=== PATIENT | male | born 1965 | race Caucasian/White ===

== ENCOUNTER 2021-03-23 21:00 | Observation (INO) | payer SELFPAY ==
--- NOTE | ~2021-03-23 | XR_ITS ---
EXAMINATION: XR ankle LT min 3V EXAM DATE: 03/23/2021 21:30 INDICATION: No Injury, swelling To Lt Ankle X 1 Wk. TECHNIQUE: Left ankle frontal, lateral and oblique projections obtained and reviewed. There is no pr ior study for comparison. FINDINGS: The left ankle mortise appears intact. There are no acute fractures or dislocations ident ified. There is no subcutaneous gas. There is soft tissue swelling over the ankle anteromedially. There are no radiopaque foreign bodies. IMPRESSION: 1. XR ankle LT min 3V exam without acute osseous findings. 2. Soft tissue swelling. Reviewed, dictated and finalized at location A.
--- NOTE | ~2021-03-23 | CT_ITS ---
EXAMINATION: CTA brain carotid EXAM DATE: 03/23/2021 23:03 INDICATION: Transient ischemic attack. Neuro symptoms. Memory loss. TECHNIQUE: Spiral CTA of the carotid arteries was performed with intravenous injection 100 cc of Om nipaque 350. Axial, coronal, sagittal reformatted images reviewed. Additional reformatted images cre ated on dedicated 3-D workstation. NASCET comparable standard used to assess the degree of arterial stenosis. Spiral CT angiogram cerebral arteries performed with the same intravenous injection of con trast. Source images of the brain CTA transferred to dedicated workstation for 3-D rotational image c reation. Coronal, sagittal maximum intensity pixel images also reviewed. The dose-length product (D LP) for this examination was 1917.39 mGy-cm. The exposure was tailored according to patient size, a nd iterative reconstruction (ASIR) was used as additional dose reduction technique. There is no shaila or study for comparison. FINDINGS: There is suboptimal arterial enhancement due to the obtaining pulmonary CT angiogram with s becca injection of contrast, in particular the 3-D reconstructions are limited. There is no common car otid artery stenosis or evidence of fibromuscular dysplasia or dissection. Left vertebral artery slig htly larger than right. There is mild bilateral carotid siphon arterial sclerosis without stenosis. S ymmetric cerebral artery arborization. No cerebral artery aneurysm suspected. There is right-sided po sterior communicating artery dominant posterior cerebral artery. No evidence of sinus thrombosis. No evidence of intraparenchymal brain mass lesion. No evidence of acute infarction. 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 There is no mass effect or midline shift. There is no obstructive hydroceph alus suspected. There are no extra-axial collections. Calvarial surgical changes. There are no area s of abnormal enhancement on the post contrast images. Incidental note made of superior mediastinal and lower internal jugular chain lymphadenopathy. Also h azy fat stranding along the right internal jugular chain, nonspecific. IMPRESSION: 1. Limited exam without acute carotid or cerebral arterial findings. 2. Bilateral carotid bulb 0% stenosis. 3. Lower cervical, superior mediastinal lymphadenopathy. Reviewed, dictated and finalized at location G.
--- NOTE | ~2021-03-23 | CT_ITS ---
EXAMINATION: CTA chest PE protocol EXAM DATE: 03/23/2021 23:03 INDICATION: Shortness of breath. Abnormal chest x-ray with widened superior mediastinum. Non-Hodgkin' s lymphoma TECHNIQUE: Spiral CTA of the chest (pulmonary arteries) was performed with 100 cc Omnipaque 350 intr avenous contrast injection. Images were acquired during the pulmonary arterial phase. Coronal maxi mum intensity projection 3D-reconstructions were created by the technologist on dedicated workstation . Axial, coronal and sagittal reformatted images were reviewed. The dose-length product (DLP) for t his examination was 0.00 mGy-cm. The exposure was tailored according to patient size (auto mA expos ure control), and iterative reconstruction (ASIR) was used as additional dose reduction technique. Co rrelation is made to chest x-ray earlier same date. FINDINGS: There is suboptimal pulmonary arterial opacification. No central pulmonary emboli. No tho racic aortic dissection. The lungs are clear. There is extensive lymphadenopathy in the right supraclavicular region, in the superior mediastinum, prevascular region. For example, a right lower paratracheal lymph node measures 2.2 x 1.6 cm. There a re many lymph nodes that are pathologically enlarged. There are trace bilateral pleural effusions. T racheobronchial tree is patent. There is no pneumothorax. Heart normal in size. No evidence of coronary arterial calcification. Upper abdomen is unremarkable. There is thoracic spondylosis wit hout osteoblastic or osteolytic lesions identified. There is small sliding gastroesophageal hiatal h ernia. IMPRESSION: 1. No central pulmonary emboli. Segmental pulmonary arteries not confidently evaluated. 2. Extensive mediastinal, right supraclavicular lymphadenopathy in patient with known diagnosis of n on-Hodgkin's lymphoma. 3. Trace pleural effusions. Reviewed, dictated and finalized at location G. IMPRESSION: 1. No central pulmonary emboli. Segmental pulmonary arteries not confidently e valuated. 2. Extensive mediastinal, right supraclavicular lymphadenopathy in patient wit h known diagnosis of non-Hodgkin's lymphoma. 3. Trace pleural effusions.
--- NOTE | ~2021-03-23 | XR_ITS ---
EXAMINATION: XR chest 1V EXAM DATE: 03/23/2021 21:32 INDICATION: Neuro symptoms, HX of asthma. TECHNIQUE: Frontal and lateral projections of the chest obtained and reviewed. There is no prior cathryn dy for comparison. FINDINGS: There is widening of the superior mediastinum and right peritracheal stripe. Reportedly zachary morton does have a history of non-Hodgkin's lymphoma according to history obtained by charge histotechnologist. If patient does not have known recent history of mediastinal lymphadenopathy, then a follow-up chest CT should be obtained with contrast if possible. This could be done is nonemergent exam for incident al finding. No confluent consolidation, pneumothorax or pleural effusion suspected. Normal heart size. There are no osseous abnormalities identified. IMPRESSION: Widened superior mediastinum, could indicate lymphadenopathy or anterior mediastinal mass . Clinical correlation. Recommendation above. Reviewed, dictated and finalized at location A. IMPRESSION: Widened superior mediastinum, could indicate lymphadenopathy or ant erior mediastinal mass. Clinical correlation. Recommendation above.
--- NOTE | ~2021-03-23 | MR_ITS ---
EXAMINATION: MR brain/brain stem wo/w con DATE: 03/24/2021 15:17 INDICATION: Transient ischemic attack. Confusion. TECHNIQUE: Magnetic resonance imaging (MRI) of the brain and brainstem was performed without and with 20 mL MultiHance intravenous contrast. Sequences included sagittal and axial T1-weighted FSE, axial diffusion-weighted FS EPI, axial T2*-weighted GRE, axial T2-weighted FLAIR Propeller, and axial T2-we ighted Propeller. Postcontrast sequences included axial and coronal T1-weighted FSE. Apparent diffusi on coefficient (ADC) maps were created. COMPARISON: Head CT 03/23/2021 FINDINGS: There is an old ventriculostomy tract in right frontal lobe. There are scattered areas of n onspecific increased T2-weighted signal intensity in the cerebral white matter, which is within alessia l limits for the patient's age. There is no intracranial hemorrhage, acute infarction, or abnormal in tracranial mass lesion. The ventricles are normal in size. There is mild mucosal thickening in the pa ranasal sinuses. The mastoid air cells are normal. The orbits are normal. IMPRESSION: 1. 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 Reviewed, dictated and finalized at location B.
--- NOTE | ~2021-03-23 | CT_ITS ---
EXAMINATION: CT brain wo con EXAM DATE: 03/23/2021 21:26 INDICATION: Neuro symptoms. Injury. Memory loss. Non-Hodgkin's lymphoma. TECHNIQUE: Spiral CT of the head was performed without contrast. Axial, coronal and sagittal images were reviewed. The dose-length product (DLP) for this examination was 681.00 mGy-cm. The exposure w as tailored according to patient size, and iterative reconstruction (ASIR) was used as additional dos e reduction technique. There is no prior study for comparison. FINDINGS: There is no acute intraparenchymal hemorrhage. No evidence of intraparenchymal brain mass lesion. There is small old right frontal lobe infarction. No evidence of acute infarction. There is no mass effect or midline shift. The ventricles are normal in size. There are no extra-axial collec tions. There are no acute calvarial fractures. The orbits are unremarkable. Calvarial surgical salmon es. Soft tissue is unremarkable. The visualized sinuses and mastoid air cells are well aerated. IMPRESSION: 1. No acute intracranial findings. 2. Small old right frontal lobe infarction. Reviewed, dictated and finalized at location A.
[2021-03-23 21:03] VITALS: BP 150/90; PULSE 88; RESP 18; TEMP 36.6; O2SAT 96
--- NOTE | 2021-03-23 21:09 | ECG_ITS ---
Measurements Intervals [place] Rate: 82 P: 50 [place]: 149 QRS: 11 QRSD: 90 T: -2 QT: 348 QTc: 407 Interpretive Statements SINUS RHYTHM BORDERLINE T WAVE ABNORMALITY- INFERIOR LEADS BASELINE ARTIFACT- I, III, AVL BORDERLINE ECG Electronically Signed On 03-24-2021 7:01:56 CDT by Jeronimo Reynolds D.O.
[2021-03-23 21:27] LABS: Basophils Absolute Auto 0.1 K/mm3 (0.0-0.1); Basophils Percent Auto 1.3 % (0.2-1.2); Eosinophils Absolute Auto 0.6 K/mm3 (0-0.3); Eosinophils Percent Auto 6.7 % (0-4.4); Hematocrit 43.9 % (42.0-52.0); Hemoglobin 14.8 g/dL (14.0-18.0); Immature Granulocyte Percent A 3.3 % (0-0.5); Lymphocytes Absolute Auto 1.15 K/mm3 (0.9-3.2); Lymphocytes Percent Auto 12.6 % (18.3-44.2); Mean Corpuscular HGB Conc 33.7 g/dl (32-36); Mean Corpuscular Hemoglobin 30.8 pg (26-34); Mean Corpuscular Volume 91.5 fl (80-100); Mean Platelet Volume 9.6 fl (7.4-10.4); Monocytes Absolute Auto 0.9 K/mm3 (0.1-0.6); Monocytes Percent Auto 10.2 % (2.6-8.5); Neutrophils Absolute Auto 6.1 K/mm3 (1.3-6.7); Neutrophils Percent Auto 65.9 % (45.5-73.1); Platelet Count Result 165 k/mm3 (150-375); Red Cell Distribution Width 12.6 % (11.5-14.5); White Blood Count 9.2 K/mm3 (4.5-10.0)
[2021-03-23 21:37] LABS: Anion Gap 6 mmol/L (8-16); Blood Urea Nitrogen 17 mg/dL (9-20); Calcium 9.1 mg/dL (8.4-10.2); Carbon Dioxide 29 mmol/L (22-30); Chloride 104 mmol/L (98-107); Estimated CRCL calculation 83 ml/min; Estimated Glomerular Filt Rate > 60; Glucose 94 mg/dL (75-110); INR 1.1; Potassium 3.7 mmol/L (3.4-5.0); Prothrombin Time 14.4 Seconds (11.1-14.7); Sodium 139 mmol/L (137-145)
[2021-03-23 21:38] LABS: Partial Thromboplastin Time 29.5 SECONDS (22.3-36.8)
[2021-03-23 21:49] LABS: Troponin I < 0.012 ng/mL (0.000-0.034)
--- NOTE | 2021-03-23 21:52 | ED.NEUROSD ---
HPI - Neuro Symptoms/Deficit General Chief Complaint: Neuro Symptoms/Deficit Stated Complaint: forgetting things, repeating himself Time Seen by Provider: 03/23/21 21:51 Source: patient Mode of arrival: ambulatory Limitations: no limitations History of Present Illness HPI Narrative: Patient is a 55-year-old male with a history of hypertension, asthma, non hodgkin lymphoma (in remission past 29 years) who presents for evaluation of possible stroke. Patient was at home this evening when his noticed that he was repeatedly asking the same question after he had been given answers to it. He did not remember visiting the chiropractor's office this afternoon. At the chiropractic appointment, he reports having a blade run over his left ankle. He states he had been having an ankle injury and pain in the right leg, but he denies any current calf pain or swelling. No history of DVT. He did not have any neck adjustment. He denies any current headache, chest pain, vision changes. No current focal weakness or numbness. He has been ambulatory. He denies history of stroke or anticoagulation. No recent fall or injury. No history of head trauma. Patient denies fever or chills. Patient's states that he was subtley confused for approximately 45 minutes, for our triage nurse the patient was also quite forgetful and not able to provide much history. At bedside, patient is alert and oriented to person, place, to time. He can identify and name objects. He does remember being at the chiropractor earlier today. Time of onset of symptoms approximately 830. Related Data Home Medications Medication Instructions Recorded Confirmed albuterol sulfate 03/23/21 famotidine 03/23/21 losartan 03/23/21 omeprazole 03/23/21 Allergies Allergy/AdvReac Type Severity Reaction Status Date / Time No Known Allergies Allergy Verified 03/23/21 21:59 Review of Systems Review of Systems: Narrative: CONSTITUTIONAL: Denies fever, chills, or sweats. EYES: Denies visual changes, redness, or discharge. ENT: Denies rhinorrhea, congestion, sore throat, or otalgia. CARDIOVASCULAR: Denies chest pain, palpitations, or edema. RESPIRATORY: Denies cough or dyspnea. GASTROINTESTINAL: Denies abdominal pain, nausea, vomiting, or diarrhea. GENITOURINARY: Denies dysuria or hematuria. SKIN: Denies rash or itching. MUSCULOSKELETAL: Denies back pain, joint pain, or myalgia. NEUROLOGIC: Denies headache, numbness, or weakness. [facility] Social History Social History (Updated 03/23/21 @ 22:12 by Manuela Farfan MD) Smoking status: Never smoker Alcohol intake: never Substance use: never Living arrangements: with family Gender identity (if verbalized by the patient): Male Exam Narrative: Exam Narrative: GENERAL: Awake, alert, conversant HEAD: Normocephalic, atraumatic. EYES: PERRLA and EOMI. ENT: Nares clear, no rhinorrhea or epistaxis. Mucous membranes moist. NECK: Supple. CHEST: No respiratory distress, breathing even and non labored HEART: Regular rate, sinus rhythm ABDOMEN:Non distended, non tender EXTREMITIES: Normal range of motion. No edema. SKIN: Warm, dry, no rash. NEURO:No focal deficits. Alert and oriented x3. Finger to nose intact bilaterally. EOMs intact without nystagmus. No facial droop/asymmetry noted bilaterally. Grimace intact. Intact sensation in face. Hearing intact bilaterally. Shoulder shrug intact. Strength 5/5 bilateral upper extremities. Strength 5/5 bilateral lower extremities. Reflexes 2+ patellar. Heel to hand intact bilaterally. Ambulatory exam deferred. NIH stroke scale score is 0 Course Vital Signs Vital signs: Vital Signs Temperature 36.6 C 03/23/21 21:03 Pulse Rate 88 03/23/21 21:03 Respiratory Rate 18 03/23/21 21:03 Blood Pressure 150/90 H 03/23/21 21:03 Pulse Oximetry 96 03/23/21 21:03 Temperature 36.7 C 03/24/21 01:24 Pulse Rate 71 03/24/21 01:24 Respiratory Rate 18 03/24/21 01
[2021-03-23 21:55] VITALS: BP 155/104; PULSE 91; RESP 20; O2SAT 100
[2021-03-23 22:24] LABS: Glucose Point of Care 84 (65-105)
[2021-03-23 22:42] LABS: Add Urine Microscopic? YES; Appearance Urine Clear (Clear); Bilirubin Urine Negative (Negative); Blood Urine 1+ (Negative); Color Urine Yellow (Yellow); Glucose Urine UA Negative (Negative); Ketones Urine Negative (Negative); Leukocyte Esterase Ur Negative LEU/UL (Negative); Mucus Urine Rare /lpf; Nitrate Urine Negative (Negative); Protein Urine Negative (Negative); RBC Urine 0-2 /hpf (0-2); Specific Grav Ur 1.015 (1.001-1.035); Squamous Epithelial Cell Urine Rare /hpf (Few); Urobilinogen Urine Negative mg/dL (<2.0); WBC Urine 0-3 /hpf
[2021-03-23 23:01] LABS: Amphetamine Screen Urine Negative (Negative); Barbiturate Screen Urine Negative (Negative); Benzodiazepines Screen Urine Negative (Negative); Cannabinoid Screen Urine Negative (Negative); Cocaine Screen Urine Negative (Negative); Methadone Screen Urine Negative (Negative); Opiate Screen Urine Negative (Negative); Phencyclidine Screen Urine Negative (Negative)
[2021-03-23 23:38] VITALS: BP 138/100; PULSE 83; RESP 16; O2SAT 100
[2021-03-24] MEDS: ASPIRIN 81 MG CHEWABLE TABLET 324 MG PO (00:22)
[2021-03-24 01:24] VITALS: BP 132/88; PULSE 71; RESP 18; TEMP 36.7; O2SAT 99; BMI 35.7
--- NOTE | 2021-03-24 01:51 | ADMGEN ---
This patient, Bernardino Guillory, was admitted to 3 [facility] Surg Room 304-01@ 0124. Patient/family oriented to hospital policies and general routines including ID bracelet, bed and alarms, visiting hours, pain management, procedures, bathroom and other care routines, personal items, smoking policy, room service/diet, and visiting hours. Information on how to activate the Rapid Response Team has been discussed. Patient/Family are encouraged to report perceived risks to care and to ask questions if they do not understand what they are told or what they should do.
[2021-03-24 02:00] VITALS: PULSE 74
[2021-03-24 04:00] VITALS: PULSE 41
[2021-03-24 05:40] VITALS: BP 124/80; PULSE 72; RESP 18; TEMP 37.1; O2SAT 98
[2021-03-24] MEDS: ASPIRIN 81 MG CHEWABLE TABLET PO (07:52)
[2021-03-24] MEDS: PANTOPRAZOLE 40 MG TABLET PO (07:52)
[2021-03-24] MEDS: LOSARTAN POTASSIUM 50 MG TABLET BY MOUTH (07:52)
[2021-03-24 08:00] VITALS: PULSE 70
[2021-03-24] MEDS: ACETAMINOPHEN 325 MG TABLET 650 MG PO (08:02)
[2021-03-24 10:34] LABS: Cholesterol 200 mg/dL (0-200); HDL Direct 28 mg/dL; Triglycerides 142 mg/dL (<150)
[2021-03-24 10:45] LABS: LDL Cholesterol Direct 122 mg/dL
--- NOTE | 2021-03-24 11:25 | WPDNEURCNPN ---
Assessment and Plan Assessment and plan (1) Transient confusion: Code(s): R41.0 - Disorientation, unspecified Status: Acute Additional Plan Negative evaluation with the complaints of memory dysfunction could very well be related to the stress but will follow him in the office as an outpatient further delineation a routine EEG can be obtained Consult date: 03/24/21 Time Seen: 10:30 HPI: Bernardino Guillory is a 55 year old male admitted to the hospital through the emergency room with complaints of forgetfulness and repeating himself back and forth again and again in addition to the ongoing history of 1. Hypertension 2. Koul asthma 3. History of non-Hodgkin's lymphoma which is in remission for the last 29 years. Patient was reportedly at home in the evening when his noted that he was repeating and asking the same question after he had been given answers to it previously he did not remember visit in the [employer] office in the afternoon he was seen the chiropractor for the left ankle injury and pain in the left lower extremity though he did not have any neck adjustment he gave no history of associated headache chest pain visual difficulties or focal weakness and no numbness reportedly was confused for about 45 minutes, his medications included from Motrin, losartan, omeprazole, and albuterol sulfate. As per the information available from his at the time of this particular visit he has been under significant stress lately evaluation up until now included the CTA which revealed 0% stenosis of the carotid bulb and lower cervical superior mediastinal lymphadenopathy CT of the chest documented no central pulmonary emboli but extensive mediastinal right supraclavicular lymphadenopathy with known diagnosis of non-Hodgkin's lymphoma in the past with trace pleural effusion, left ankle x-ray documented no fracture but definite soft tissue swelling routine lab studies normal. Review of Systems Review of Systems: All systems reviewed & are unremarkable except as noted in HPI and below PMFSH Social History Social History Smoking status: Never smoker Second hand tobacco smoke exposure: No Alcohol intake: current Drinks per week: 5 Substance use: never Substance use type: does not use Living arrangements: with family Gender identity (if verbalized by the patient): Male Spiritual care concerns: No Meds Home Medications and Allergies Home Medications Medication Instructions Recorded Confirmed Type albuterol sulfate 2.5 mg CONTINUOUS NEBULIZATION Q4H 03/23/21 03/24/21 History PRN famotidine 40 mg PO DAILY 03/23/21 03/24/21 History losartan 50 mg DAILY 03/23/21 03/24/21 History omeprazole 40 mg BID 03/23/21 03/24/21 History Allergies Allergy/AdvReac Type Severity Reaction Status Date / Time No Known Allergies Allergy Verified 03/23/21 21:59 Vital Signs Vital Signs - 24 hr 03/23/21 21:03 03/23/21 21:55 03/23/21 23:38 Temperature 36.6 C Pulse Rate 88 91 83 Respiratory Rate 18 20 16 Blood Pressure 150/90 H 155/104 H 138/100 H Pulse Oximetry 96 100 100 03/24/21 01:24 03/24/21 02:00 03/24/21 04:00 Temperature 36.7 C Pulse Rate 71 74 41 L Respiratory Rate 18 Blood Pressure 132/88 Pulse Oximetry 99 03/24/21 05:40 03/24/21 08:00 Temperature 37.1 C Pulse Rate 72 70 Respiratory Rate 18 Blood Pressure 124/80 Pulse Oximetry 98 Exam Const: General: cooperative, healthy appearing, comfortable and no acute distress Nutritional Appearance: well nourished and overweight Orientation/consciousness: oriented to person, oriented to place and oriented to time Limitations: no limitations HENMT: Head: normal to inspection and normocephalic Ears: hearing grossly normal bilaterally General nose exam: Normal external nose present Face and sinus: normal facial exam Eyes: General: appearance normal, both eyes and all related s
[2021-03-24 14:00] VITALS: BP 131/79; PULSE 76; RESP 18; TEMP 36.7; O2SAT 98
--- NOTE | 2021-03-24 15:27 | PC.NURSE ---
patient returned to room from mri
--- NOTE | 2021-03-24 16:06 | PM.SD2 ---
Same Day Admit/Disch: HPI History of Present Illness Chief complaint: TIA Narrative: Date of admission: 03/23/2021 Date of discharge: 03/24/2021 Bernardino Guillory is a 55 year old male with a history asthma, hypertension, Diana's esophagus, and non-Hodgkin lymphoma in remission for many years who presented to the emergency department on 03/23/2021 with complaints of memory issues. His noted that he was repeating himself and having difficulty recalling details of his activities earlier in the day. His is present at the bedside and explains that he went to a chiropractor appointment at3:30 p.m.. Afterwards he came home, then drove to slate picker dinner. After getting back home, he noted that he ?just was not feeling like myself.? His states that he was telling her details about his chiropractor appointment and then repeated himself 2 times later, which is when she was concerned that something was not right. He notes that he has been under quite a bit of stress lately with some family issues. He reports his symptoms of ?brain fog? lasted approximately 2 hours. He denied visual changes, speech changes, difficulty with balance or coordination, dizziness, lightheadedness, unilateral numbness, tingling, or weakness. Upon arrival to the emergency department, his blood pressure was slightly elevated with additional vital signs stable, CBC and BMP unremarkable, head CT was negative for any acute findings but did show evidence of small old right frontal lobe infarction, left ankle x-ray showed soft tissue swelling without any acute osseous findings, CXR showed widened superior mediastinum which could indicate lymphadenopathy or anterior mediastinal mass, and CTA and right supraclavicular lymphadenopathy with no evidence of pulmonary embolism. At the time of my evaluation, his symptoms had resolved entirely any and no complaints. He was admitted to the hospitalist service for observation. Supervising physician for this history and physical is Dr. Del Barnes. [facility] Past Medical History Medical History (Updated 03/24/21 @ 16:20 by Quin Gunn PA-C) Asthma Diana esophagus Hypertension Non-Hodgkin lymphoma in remission TIA (transient ischemic attack) Surgical History Surgical History (Updated 03/24/21 @ 16:44 by Quin Gunn PA-C) History of brain surgery [place] for tx of lymphoma History of lumpectomy Lymphoma tx History of shoulder surgery AC separation Family History Family History (Updated 03/24/21 @ 16:21 by Quin Gunn PA-C) Mother Adopted Family history unknown Father Adopted Family history unknown Social History Social History (Updated 03/24/21 @ 16:23 by Quin Gunn PA-C) Social History: Mr. Guillory lives at home with his and children. He is currently not working. He is independent in his activities. His PCP is Dr. Ivan Blanco. He designates his as his surrogate decision maker and would like to be a full code. Smoking status: Never smoker Second hand tobacco smoke exposure: No Alcohol intake: current Drinks per week: 3 Substance use: never Substance use type: does not use Living arrangements: with family Gender identity (if verbalized by the patient): Male Spiritual care concerns: No Same Day Admit/Disch: Med Pre-admit Medications Home Medications Medication Instructions Recorded Confirmed Type albuterol sulfate 2.5 mg CONTINUOUS NEBULIZATION Q4H 03/23/21 03/24/21 History PRN famotidine 40 mg PO DAILY 03/23/21 03/24/21 History losartan 50 mg DAILY 03/23/21 03/24/21 History omeprazole 40 mg BID 03/23/21 03/24/21 History aspirin [Children's Aspirin] 81 mg PO DAILY@0800 #30 tablet 03/24/21 Rx atorvastatin 20 mg PO DAILY #30 tablet 03/24/21 Rx Exam Narrative: Exam Narrative: Mr. Guillory is a well-nourished well-appearing 55-year-old male who is lying semi recumbent in bed. He appears comfortable and is in NARD.
== END 2021-03-24 16:11 | disposition home or self-care (01) ==
LOC: ANHED 21:57 → ANH3MEDSUR 03-24 01:03
PROVIDERS: Physician Assistant; Admitting Provider Internal Medicine; Emergency Provider Emergency Medicine; PCP Family Medicine; Visit Provider Internal Medicine
DX: G45.9 Transient cerebral ischemic attack, unspecified (principal); I10 Essential (primary) hypertension; Z86.73 Personal history of transient ischemic attack (TIA), and cerebral infarction without residual deficits; Z85.72 Personal history of non-Hodgkin lymphomas
CPT/HCPCS: 36415; 70450; 70496; 70498; 70553; 71045; 71275; 73610; 80048; 80061; 80307; 81001; 82948; 84484; 85025; 85610; 85730; 93005; 99285; A9270; A9577; G0378; G0379; Q9967